=== PATIENT | male | born 1970 | race Two or more races ===

== ENCOUNTER 2020-07-18 00:32 | Emergency (ER) | payer OTHER ==
[~2020-07-18] VITALS: Ht 175.3 cm; Wt 95.3 kg
[2020-07-18] MEDS ORDERED: KETO10TA2 PO (11:22)
[2020-07-18] MEDS ORDERED: TAMS0.4C PO (11:22)
== END 2020-07-18 11:44 | disposition home or self-care (01) ==
LOC: ER 00:32
DX: N20.2 Calculus of kidney with calculus of ureter (principal)